=== PATIENT | female | born 1965 | race Caucasian/White ===

== ENCOUNTER 2022-03-30 08:30 | Day surgery (SDC) | payer BC ==
[2022-03-27 11:14] VITALS: BMI 44.2
[2022-03-30] MEDS ORDERED: LIDOCAINE HCL/PF 2% SDV 5ML VIAL ONE (11:13)
[2022-03-30] MEDS ORDERED: PROPOFOL 60 ML ONE (11:14)
[2022-03-30 12:12] VITALS: TEMP 97.1
[2022-03-30 13:21] VITALS: BP 112/70; PULSE 76; RESP 19
== END 2022-03-30 13:01 | disposition home or self-care (01) ==
LOC: FASU-ENDO 08:30
PROVIDERS: ATTEND Internal Medicine Gastroenterology
PROC: 0DBK8ZX Excision of Ascending Colon, Via Natural or Artificial Opening Endoscopic, Diagnostic (ICD-10-PCS; principal; 2022-03-30 11:08)
DX: Z12.11 Encounter for screening for malignant neoplasm of colon (principal); Z86.010 Personal history of colon polyps; K57.30 Diverticulosis of large intestine without perforation or abscess without bleeding; K63.5 Polyp of colon
CPT/HCPCS: 88305-TC